=== PATIENT | male | born 1990 ===

== ENCOUNTER 2018-02-22 13:00 | Emergency (ER) | payer OTHER ==
[2018-02-22 13:08] VITALS: BP 144/93; PULSE 104; RESP 16; TEMP 98.1; O2SAT 100
--- NOTE | 2018-02-22 13:40 | C.PDOC ---
History Of Present Illness Patient presents to ED c/o diffuse itchy rash on torso, arms, legs, face sine yesterday. He denies fever, cough, runny nose, sore throat, nausea/vomiting, unusual food intake, new detergents/lotions, SOB, sensation of throat closing up , lip or tongue swelling. Patient was recently in [place] in [place] area, but denies seeing any ticks on his body or known bullseye rashes. Time Seen by Provider: 02/22/18 13:13 Chief Complaint (Nursing): Abnormal Skin Integrity History Per: Patient History/Exam Limitations: no limitations Onset/Duration Of Symptoms: Days (2) Current Symptoms Are (Timing): Still Present Quality Of Symptoms: Itching Severity: Mild Past Medical History Reviewed: Historical Data, Nursing Documentation, Vital Signs Vital Signs: Last Vital Signs Temp 98.1 F 02/22/18 13:03 Pulse 104 H 02/22/18 13:03 Resp 16 02/22/18 13:03 BP 144/93 H 02/22/18 13:03 Pulse Ox 100 02/22/18 13:40 - Medical History PMH: No Chronic Diseases Family History: States: No Known Family Hx - Social History Hx Tobacco Use: No Hx Alcohol Use: Yes Hx Substance Use: Yes ([facility]) - Immunization History Hx Tetanus Toxoid Vaccination: No Hx Influenza Vaccination: No Hx Pneumococcal Vaccination: No Review Of Systems Except As Marked, All Systems Reviewed And Found Negative. Constitutional: Negative for: Fever, Chills ENT: Negative for: Nose Congestion, Throat Pain Cardiovascular: Negative for: Chest Pain Respiratory: Negative for: Cough, Shortness of Breath Gastrointestinal: Negative for: Nausea, Vomiting Skin: Positive for: Rash Physical Exam - Physical Exam Appears: Well, Non-toxic, No Acute Distress Skin: Rash (diffuse maculopapular rash on torso, arms/legs, sparing palms/soles , urticaria on right upper eyelid ) Head: Normacephalic Eye(s): bilateral: Normal Inspection, PERRL, EOMI Oral Mucosa: Moist Tongue: Normal Appearing, No Swelling Lips: Normal Appearing, No Swelling Throat: Normal, No Erythema, No Exudate, Other (no lesions ) Neck: Normal Lymphatic: No Adenopathy Cardiovascular: Rhythm Regular Respiratory: Normal Breath Sounds, No Rales, No Rhonchi, No Wheezing Neurological/Psych: Oriented x3 ED Course And Treatment O2 Sat by Pulse Oximetry: 100 (RA) Pulse Ox Interpretation: Normal Progress Note: Patient given PO Prednisone, PO Benadryl and PO pepcid. Rxs for Prednisone and Benadryl given. Patient instructed to follow up with PMD/clinic in 1-2 days, and he understands he should return to ED if symptoms worsen/ persist. Disposition Counseled Patient/Family Regarding: Studies Performed, Diagnosis, Need For Followup, Rx Given - Disposition Referrals: [facility] [Outside] Disposition: HOME/ ROUTINE Disposition Time: 13:40 Condition: STABLE Additional Instructions: FOLLOW UP WITH YOUR DOCTOR/CLINIC IN 1-2 DAYS USE MEDICATIONS DIRECTED RETURN TO ER IF SYMPTOMS WORSEN Prescriptions: DiphenhydrAMINE [Benadryl] 25 mg PO Q6 PRN #20 cap PRN Reason: Itching / Pruritus predniSONE [predniSONE Tab] 40 mg PO DAILY #6 tab Instructions: Skin Rash (DC) Forms: [facility] (Amharic), Work Excuse Print Language: GEORGIAN - POA Present On Arrival: None - Clinical Impression Clinical Impression: Allergic reaction, Rash due to allergy
== END 2018-02-22 13:46 | disposition home or self-care (01) ==
LOC: C.ER 13:00
DX: T78.40XA Allergy, unspecified, initial encounter (principal); R21 Rash and other nonspecific skin eruption

== ENCOUNTER 2018-05-27 11:42 | Emergency (ER) | payer OTHER ==
[2018-05-27 12:06] VITALS: BP 133/79; PULSE 76; RESP 16; TEMP 97.9; O2SAT 100
--- NOTE | 2018-05-27 12:31 | C.PDOC ---
History Of Present Illness 28yo male, comes to ER with complaints of itchy rash in groin region for the past couple days. He denies any penile discharge, dysuria, teste pain or swelling or abdominal pain. 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 Patient offers no other complaints. Time Seen by Provider: 05/27/18 12:08 Chief Complaint (Nursing): Abnormal Skin Integrity History Per: Patient History/Exam Limitations: no limitations Onset/Duration Of Symptoms: Days (5) Current Symptoms Are (Timing): Still Present Quality Of Symptoms: Itching Severity: Mild Additional History Per: Patient Past Medical History Reviewed: Historical Data, Nursing Documentation, Vital Signs Vital Signs: Last Vital Signs Temp 97.9 F 05/27/18 12:03 Pulse 76 05/27/18 12:03 Resp 16 05/27/18 12:03 BP 133/79 05/27/18 12:03 Pulse Ox 100 05/27/18 21:34 - Medical History PMH: No Chronic Diseases Surgical History: No Surg Hx Family History: States: No Known Family Hx - Social History Hx Tobacco Use: No Hx Alcohol Use: Yes Hx Substance Use: Yes (Marijuana) - Immunization History Hx Tetanus Toxoid Vaccination: No Hx Influenza Vaccination: No Hx Pneumococcal Vaccination: No Review Of Systems Constitutional: Negative for: Fever, Chills Gastrointestinal: Negative for: Abdominal Pain Genitourinary: Positive for: Rash. Negative for: Dysuria, Penile Discharge Physical Exam - Physical Exam Appears: Non-toxic, No Acute Distress Skin: Warm, Dry Head: Normacephalic Eye(s): bilateral: Normal Inspection Neck: Supple Chest: Symmetrical Cardiovascular: Rhythm Regular Respiratory: Normal Breath Sounds, No Wheezing Gastrointestinal/Abdominal: Soft, No Tenderness, No Distention, No Guarding, No Rebound Male Genital: No Testicular Tenderness, No Testicular Swelling, No Inguinal Tenderness, No Inguinal Swelling, No Scrotal Swelling, Circumcised, Other (Few excoriations noted to right mons and proximal aspect of penis. no penile discharge noted. chaperoned by DON Zaragoza) Neurological/Psych: Oriented x3 Additional Physical Exam Comments: exam performed with singing messengerJemima Zaragoza as traffic operations engineer ED Course And Treatment O2 Sat by Pulse Oximetry: 100 (RA) Pulse Ox Interpretation: Normal Medical Decision Making Medical Decision Making: pt with itchy rash right side penis/pubic area- c/w tinea Disposition Counseled Patient/Family Regarding: Diagnosis, Need For Followup - Disposition Referrals: at [facility] [Outside] Disposition: HOME/ ROUTINE Disposition Time: 12:29 Condition: GOOD Additional Instructions: Please keep groin area clean and dry. Recommend using antifungal powder or medicated powder. Try not to scratch. Follow up with your doctor. Instructions: Jock Itch (DC) Forms: [facility] (Iranian), General Discharge Instructions - Clinical Impression Clinical Impression: Tinea cruris - PA / DEPARTMENT MGR / Resident Statement MD/DO has reviewed & agrees with the documentation as recorded. - Scribe Statement The provider has reviewed the documentation as recorded by the Scribe (Brittney Jenkins) Provider Attestation: All medical record entries made by the Scribe were at my direction and personally dictated by me. I have reviewed the chart and agree that the record accurately reflects my personal performance of the history, physical exam, medical decision making, and the department course for this patient. I have also personally directed, reviewed, and agree with the discharge instructions and disposition.
== END 2018-05-27 13:02 | disposition home or self-care (01) ==
LOC: C.ER 11:42
DX: B35.6 Tinea cruris (principal)